=== PATIENT | male | born 1935 | race Caucasian/White ===

== ENCOUNTER 2016-06-07 15:45 | Emergency (ER) | payer MEDICARE, OTHER ==
[~2016-06-07] VITALS: Ht 188 cm; Wt 85.5 kg
[2016-06-07 15:45] VITALS: BP 130/83; PULSE 76; RESP 13; O2SAT 99
--- NOTE | 2016-06-07 15:54 | ED.REPORT ---
HPI-Chest Pain 40 and Over Date of Service Jun 07, 2016 ED Provider: Kareem Webb MD Patient is a 81 year old male with a history of atrial fibrillation s/p MAZE procedure in 2016 and hypothyroidism who presents to the ED via [facility] with chest pressure and increased heart rate that began yesterday morning. Patient states that he awoke from sleep with a heart rate of 115 yesterday. He went back to sleep after measuring his heart rate, hoping that it would resolve on its own. Patient reports associated chest pressure with radiation down his left arm, lightheadedness, dizziness, generalized weakness, and shortness of breath. The patient states that his heart rate was 116 when he called his PCPs office today, who told him to present to the ED. Patient reports that he was more tired than usual the night before onset of symptoms, but he was able to exercise on his treadmill as usual. The patient has an og on his phone that will allows him to do a single lead EKG and monitor his heart rate. He typically only does this once a week and he has generally felt well since his MAZE procedure. The patient's VAT MAZE procedure was preformed on January 07 [address] [place] [address] Baltazar. Patient states that this procedure is typically completed in two parts, however the patient elected to only have the first portion of the procedure completed. Patient was given 81mg aspirin 4x by [facility]. He is not on any blood thinning medications. Patient has not recently changed his dose of Levothyroxine for his hypothyroidism. Patient denies fever, cough, increased swelling in his legs, any recent long plane/car rides, or a history of blood clots. Nursing Notes Stated Complaint: SOB,AFIB,CP Nursing Notes Reviewed: Yes Allergies: Coded Allergies: No Known Allergies (Unverified , 06/07/16) Scheduled Metoprolol Tartrate (Metoprolol Tartrate) 25 Mg Tablet 25 MG PO BID General Time Seen by MD: 15:51 Chief Complaint Chest pressure Hx Obtained From: Patient Arrived By: Ambulance ([facility]) Sudden in Onset?: Yes Onset Occurred: Yesterday Symptom Duration: Since onset Location: : Chest left: Chest right Quality: Pressure Radiation: : Arm left Severity: Current: Mild Severity: Maximum: Moderate Recent Healthcare: No recent doctor visit, No recent hospitalization Similar Sx Previous: Yes Past Medical History Past Medical History Notes: [place]: Dr. Baltazar, Cardiovascular surgeon [facility] @ [place], [place] [phone] Echocardiogram on 12/27/2015: EF of 40-45% Normal myocardial perfusion stress test on 12/27/2015 ( patient was in atrial fibrillation) Past Medical History hypothyroidism history of atrial fibrillation s/p MAZE procedure Past Surgical History hernia repair in 2016 MAZE procedure for atrial fibrillation (cardiac ablation) in [place] eye surgery Reports: Cataract surgery, Inguinal hernia repair (1985) Smoking History Never Smoker Social History Lives on [address] Alcohol Use: Denies alcohol use Other Social History: Good social support, Local resident Ambulatory Status Independent Review of Systems Constitutional: Reports: Weakness - generalized, Denies: Chills, Fever Respiratory: Reports: Shortness of breath, Denies: Non-productive cough Cardiovascular: Reports: Chest pain, Palpitations GI: Denies: Nausea, Vomiting Musculoskeletal: Denies: Extremity pain, Extremity swelling Neurologic: Reports: Dizziness, Lightheaded Complete sys rev & neg: except as marked. Physical Exam Initial Vital Signs Vital Signs (First) Date Time Temp Pulse Resp B/P Pulse Ox O2 Delivery O2 Flow Rate FiO2 06/07/16 15:45 36.4 76 13 130/83 99 Room Air Initial VS: Reviewed Head / Eyes: Atraumatic, Normocephalic, PERRL ENT: Conjunctiva normal, No scleral icterus Neck: Supple, Full range of motion Extremities: Vascular intact, Neuro intact, No swelling Skin: Warm, Dry Neurologic: Alert, Oriented, Nonfocal Psychiatric: Mood/affect normal, Behavior normal, Normal thought content General/Constitutional: Awake, Alert, No acute distress Patient brought along a phone based 1 lead cardiac tracing device, which was uninterpretable (from today and yesterday) Respiratory / Chest: Breath sounds NL, Breath sounds = bilat, No respiratory distress, No rales, No rhonchi, No wheezing Cardiovascular: Heart rate NL, Regular rhythm, Heart sounds NL, No gallop, No murmurs, No rubs Abdomen: Soft, Non-tender, BS normoactive Interpretation & Diagnostics Lab Results Interpretation Result Diagram: 06/07/16 1619 06/07/16 1619 Test 06/07/16 16:19 06/07/16 17:21 White Blood Count 3.9th/mm3 (3.8-10.1) Red Blood Count 4.70mil/mm3 (4.40-5.80) Hemoglobin 14.9g/dL (13.8-17.2) Hematocrit 43.9% (41.0-50.0) Mean Corpuscular Volume 93.4fL (81-100) Mean Corpuscular Hemoglobin 31.7pg (27.0-35.0) Mean Corpuscular Hemoglobin Concent 33.9% (32.0-37.0) Red Cell Distribution Width 13.0% (12.3-15.4) Platelet Count 179bil/L (150-400) Neutrophils (%) (Auto) 52.6% (40-74) Lymphocytes (%) (Auto) 33.2% (14-46) Monocytes (%) (Auto) 11.1% (4-12) Eosinophils (%) (Auto) 2.8% (0-5) Basophils (%) (Auto) 0.3% (0-3) D-Dimer 1.0mg/L (<0.50) Sodium Level 139mEq/L (134-144) Potassium Level 5.1mEq/L (3.5-5.2) Chloride Level 103mEq/L (97-108) Carbon Dioxide Level 24mmol/L (18-29) Blood Urea Nitrogen 26mg/dL (8-27) Creatinine 1.06mg/dL (0.76-1.27) Estimat Glomerular Filtration Rate 71mL/min (>59) Glucose Level 99mg/dL (60-99) Calcium Level 8.8mg/dL (8.5-10.1) Magnesium Level 2.1mg/dL (1.6-2.6) Total Bilirubin 0.4mg/dL (0.0-1.2) Aspartate Amino Transf (AST/SGOT) 21U/L (0-50) Alanine Aminotransferase (ALT/SGPT) 12U/L (0-44) Alkaline Phosphatase 53U/L (25-160) Troponin T < 0.010ug/L (0.0-0.011) Pro-B-Type Natriuretic Peptide 2217pg/mL (0-486) Total Protein 6.2g/dL (6.4-8.4) Albumin 3.5g/dL (3.4-5.0) Thyroid Stimulating Hormone (TSH) 10.500uIU/mL (0.450-4.500) Hold Wolf Top Tube Received (Received) Hold Urine Received (Received) ECG Interpretation ECG Interpretation: Atrial flutter with 3:1 AV block, Rate 77 Time: 16:14 Interpreted by: ED physician ECG Interpretation: atrial flutter with 2:1 block, Rate 115 Time: 17:28 Interpreted by: ED physician X-Ray Chest Interpretation Chest Xray Interpretation: IMPRESSION: No acute process. Dictated by: Prieto Metcalf M.D. on 06/07/2016 at 16:35 Approved by: Prieto Metcalf M.D. on 06/07/2016 at 16:35 View: Portable, 1 view Interpretation / Wet Read by: Interpret - Radiologist CT Chest Interpretation IMPRESSION: 1. No evidence of pulmonary embolism. 2. Bilateral apical scarring and subpleural septal thickening which may also represent scarring versus nonspecific mild chronic interstitial lung disease. Dictated by: Brayden Caballero M.D. on 06/07/2016 at 18:31 Approved by: Brayden Caballero M.D. on 06/07/2016 at 18:31 Study type: CT pulm angiogram Interpretation / Wet Read by: Interpret - Radiologist Re-Eval/Medical Decision Med Decision/Clinical Course 81-year-old male with atrial flutter. He has had an approximately 36 hours noting it yesterday on awakening. Has a history of atrial fibrillation in the past with a procedure to prevent atrial fibrillation. This evidently was his first recurrence since then. He has some mild chest pain no syncope mild shortness of breath. Rate is well-controlled on arrival, later he goes from a 3-1 blocked with 21 block and has some rapid ventricular response. Given Cardizem 30 mg by mouth, 20 mg and then 10 mg IV without any change in his heart rate. Approximately hour after the last dose of Cardizem he was given 25 mg of metoprolol with good results. We discussed anticoagulation, the patient has a relatively home but at this point does not wish to start anticoagulation and is aware of the stroke risk. Additionally, we did a CT angiogram based on a d-dimer of 1.0. Pulmonary was was ruled out. He would like to contact his kitchenwhere maker in [place],, Dr. Baltazar prior to starting anticoagulation. Additionally the patient's plan is to follow up with cardiology locally. Source of Hx: Old records Time of Eval: 17:44 Patient Status: Condition improved Re-Evaluation/Progress Note: Rechecked the patient, who was informed of the results of his labs. He was found to have an elevated D-dimer and will need to have a CTA. Patient understands and agrees with this plan. Patient does not wish to be anticoagulated and would like his kitchenwhere maker in [place] to be consulted. Time of Eval: 18:48 Patient Status: Condition improved Re-Evaluation/Progress Note: Rechecked the patient, who was informed of the attempt to call his kitchenwhere maker. His CT scan was negative. Patient was again asked if he would start a anticoagulating medication. The patient declines to do so and would like to speak to his kitchenwhere maker before doing so. He does have Xarelto at home, which he states he will take if his physician tells him to. He will be started on a rate controlling medication, he was previously on Diltiazem or Metropolol. Will attempt to lower patient's heart rate prior to discharge. Time of Eval: 19:56 Patient Status: Condition improved Re-Evaluation/Progress Note: Patient is still tachycardic at 115. Unable to rate control him. Will order a Metoprolol instead. Time of Eval: 20:22 Patient Status: Condition improved Re-Evaluation/Progress Note: Rechecked the patient. Patient is still tachycardic but is comfortable. Patient wishes to be discharged home and his son is enroute to pick up driver him. He insists on going home even if he is not rate controlled. Time of Eval: 21:44 Patient Status: Condition improved Re-Evaluation/Progress Note: Patient is now rate controlled and feels improved. Discharge instructions and follow-up discussed. All questions were addressed. Return to the ED warnings given. Consultation #1: Referral / Consult Name: Srinivasan Trinh MD Consulted With: Cardiology Call Returned at: 16:11 Note: Spoke with Dr. Perez, [facility] maker, about the patient's case. Do not cardiovert the patient, as there is a risk of thrombus. Start him on anticoagulation and refer to outpatient cardiology. Consultation #2: Call Returned at: 18:47 Note: Called Dr. Baltazar's office, the patient's kitchenwhere maker in [place]. There is no kitchenwhere maker field artillery operations man at this time. Dr. Baltazar, Cardiovascular surgeon [facility] @ [facility], [place], [place] [phone] Counseled Regarding: Diagnosis, Lab results, Need for follow-up, When/why to return to ED Discharge & Departure Primary Impression: Atrial flutter Atrial flutter type: unspecified Qualified Code: I48.92 - Unspecified atrial flutter Disposition: Home Discharge Condition All VS Reviewed: Yes Condition: Stable Patient Instructions: Atrial Flutter (ED) Additional Instructions: Emergency department evaluation today included interview, examination, review of old records, EKGs, chest x-ray, CT scan of your chest, and laboratory evaluation. there does not appear to be any heart damage or other acute medical problem provoking atrial flutter. we have controlled heart rate on metoprolol, our advice is that you should be on an anticoagulant such as xarelto. You have chosen not to do this tonight, talk to your kitchenwhere maker and re-start if desired after this. Take metoprolol 25mg twice daily. watch out for feeling faint while this is started. Our goal is to have your heart rate between 60 and 100. hopefully 25mg twice daily will do this. You may need to increase or decrease based on heart rate, best to contact your doctor if your resting heart rate is outside of this range. Call cardiology for follow up soon. Return to ED for chest pain, fainting, shortness of breath. Referrals: OTHER,PHYSICIAN (PCP) Srinivasan Trinh MD Scribe Attestation Portions of this note were transcribed by Karli Brown. I, Dr. Webb personally performed the history, physical exam and medical decision-making; I reviewed and confirmed the accuracy of the information in the transcribed note. Signed by: Grace Coley, 06/07/2016 [id number] copies to: Srinivasan Trinh MD; OTHER,PHYSICIAN Kareem Webb MD Jun 07, 2016 15:54 Karli Brown Jun 07, 2016 16:15
[2016-06-07 16:27] LABS: BASOPHILS % (AUTO) 0.3 % (0-3); EOSINOPHILS % (AUTO) 2.8 % (0-5); MONOCYTES % (AUTO) 11.1 % (4-12); Mean Corpuscular Hemoglobin 31.7 pg (27.0-35.0); Mean Corpuscular Volume 93.4 fL (81-100); NEUTROPHILS % (AUTO) 52.6 % (40-74); Platelet Count 179 bil/L (150-400)
--- NOTE | 2016-06-07 16:38 | DRSVH ---
PROCEDURE: X-RAY CHEST ONE VIEW, PORTABLE ([id number]) INDICATIONS: atrial flutter and chest pain TECHNIQUE: One view of the chest was acquired. COMPARISON: None. FINDINGS: Surgical changes and devices: None. Lungs and pleura: No pleural effusions or pneumothorax. Mild biapical scarring. Lungs are otherwise clear. Mediastinum: Mediastinal contours appear normal. Heart size is normal. Bones and chest wall: No suspicious bony lesions. Overlying soft tissues appear unremarkable. IMPRESSION: No acute process. Dictated by: Prieto Metcalf M.D. on 06/07/2016 at 16:35 Approved by: Prieto Metcalf M.D. on 06/07/2016 at 16:35
[2016-06-07 17:18] LABS: TROPONIN T < 0.010 ug/L (0.0-0.011)
[2016-06-07 17:20] LABS: Magnesium 2.1 mg/dL (1.6-2.6)
[2016-06-07 17:25] VITALS: BP 113/89; PULSE 115; RESP 15; O2SAT 97
--- NOTE | 2016-06-07 18:33 | DRSVH ---
PROCEDURE: CT ANGIO CHEST PULMONARY EMBOLISM ([id number]) INDICATIONS: elevated dimer TECHNIQUE: After the administration of intravenous contrast, 2 mm thick sections acquired from the pulmonary api glenys to the posterior costophrenic angles. 3-dimensional maximum intensity projection (MIP) coronal a nd sagittal reformats were then acquired through the thorax. For radiation dose reduction, the follo wing was used: automated exposure control, adjustment of mA and/or kV according to patient size. COMPARISON: [facility], CR, XR CHEST 1VW (PORTABLE), 06/07/2016, 16:13. FINDINGS: Image quality: Excellent. Pulmonary arteries: Pulmonary arteries are normal in size, and demonstrate no intraluminal filling d efects to suggest central pulmonary embolism. Lungs and pleura: There is scarring in the lung apices bilaterally. Bilateral mild subpleural linear opacities compatible with septal thickening with an upper lobe predominance. No traction bronchiect asis or honeycombing. No acute consolidation. No pleural effusions or pneumothorax. Central and pe ripheral airways are patent. Mediastinum: Heart size is normal, without pericardial effusion. There are postsurgical changes in the heart. No mediastinal or hilar adenopathy. Thoracic aorta is normal in caliber and enhancement. Esophagus is normal in caliber, without hiatal hernia. Bones and chest wall: No suspicious bony lesions. Ribs and thoracic spine appear intact throughout. Thyroid gland demonstrates no discrete nodules. No axillary or supraclavicular adenopathy. Abdomen: Visualized upper abdominal solid organs appear normal in the early arterial phase of enhanc ement. IMPRESSION: 1. No evidence of pulmonary embolism. 2. Bilateral apical scarring and subpleural septal thickening which may also represent scarring vers us nonspecific mild chronic interstitial lung disease. Dictated by: Brayden Caballero M.D. on 06/07/2016 at 18:31 Approved by: Brayden Caballero M.D. on 06/07/2016 at 18:31
[2016-06-07] MEDS ORDERED: Diltiazem 5 mg/mL 5 mL Inj IVPUSH ONE ×2 (18:55→19:25)
[2016-06-07 19:25] VITALS: BP 117/88; PULSE 115; RESP 16; O2SAT 98
[2016-06-07] MEDS ORDERED: 0.9% Sodium Chloride 500 ML IV ONE (20:25)
[2016-06-07] MEDS ORDERED: METO25TA6 PO (21:42)
[2016-06-07 21:58] VITALS: BP 103/67; PULSE 61; RESP 18; O2SAT 98
== END 2016-06-07 22:00 | disposition home or self-care (01) ==
LOC: SED 15:45
DX: I48.92 Unspecified atrial flutter (principal); E03.9 Hypothyroidism, unspecified; Z86.79 Personal history of other diseases of the circulatory system; Z98.890 Other specified postprocedural states
CPT/HCPCS: 36415; 71010; 71275; 80053; 83735; 83880; 84443; 84484; 85025; 85379; 93005; 96374; 99285; J7040; Q9967